=== PATIENT | female | born 1995 | race Caucasian/White ===

== ENCOUNTER 2017-05-04 15:36 | Emergency (ER) | payer SELFPAY ==
[2017-05-04 15:41] VITALS: BP 129/60; PULSE 80; RESP 20; TEMP 98.8; O2SAT 100
[2017-05-04] MEDS ORDERED: SODIUM CHLOR 0.9% 1000 ML INJ 1,000 ML IV ONE (17:15)
[2017-05-04] MEDS ORDERED: ACETAMINOPHEN 325 MG TAB PO ONE (17:15)
[2017-05-04 17:42] LABS: AUTOMATED NEUTROPHIL # 4.1 TH/MM3 (1.8-7.7); BASOPHIL % 0.2 % (0.0-2.0); EOSINOPHIL % 0.4 % (0.0-4.0); HEMATOCRIT 36.1 % (35.0-46.0); HEMOGLOBIN 11.9 GM/DL (11.6-15.3); LYMPH % 24.7 % (9.0-44.0); LYMPHOCYTE # 1.5 TH/MM3 (1.0-4.8); MEAN CORPUSCULAR HEMOGLOBIN 27.7 PG (27.0-34.0); MEAN PLATELET VOLUME 8.5 FL (7.0-11.0); MONO % 5.8 % (0.0-8.0); MONOCYTE # 0.3 TH/MM3 (0-0.9); NEUT % 68.9 % (16.0-70.0); PLATELET COUNT 273 TH/MM3 (150-450); RED BLOOD COUNT 4.29 MIL/MM3 (4.00-5.30); RED CELL DISTRIBUTION WIDTH 13.9 % (11.6-17.2); WHITE BLOOD COUNT 5.9 TH/MM3 (4.0-11.0)
[2017-05-04 17:51] LABS: CHLORIDE 107 MEQ/L (98-107); SODIUM (NA) 138 MEQ/L (136-145)
[2017-05-04 17:54] LABS: ALBUMIN 3.1 GM/DL (3.4-5.0); CALCIUM 8.6 MG/DL (8.5-10.1)
[2017-05-04 17:55] LABS: BICARBONATE 22.6 MEQ/L (21.0-32.0); BLOOD UREA NITROGEN 5 MG/DL (7-18); GLUCOSE,RANDOM 83 MG/DL (74-106)
[2017-05-04 17:58] LABS: ALT (GPT) 9 U/L (10-53); AST (GOT) 9 U/L (15-37); CREATININE 0.54 MG/DL (0.50-1.00); GLOMERULAR FILTRATION RATE 143 ML/MIN (>89)
[2017-05-04 17:59] LABS: TOTAL BILIRUBIN ADULT 0.5 MG/DL (0.2-1.0); TOTAL PROTEIN 6.9 GM/DL (6.4-8.2)
[2017-05-04 18:00] LABS: ALKALINE PHOSPHATASE 57 U/L (45-117)
[2017-05-04 18:02] LABS: BILIRUBIN, URINE NEG (NEG); BLOOD, URINE NEG (NEG); GLUCOSE,URINE NEG (NEG); KETONE, URINE TRACE mg/dL (NEG); NITRITE,URINE POS (NEG); URINE LEUKOCYTE ESTERASE NEG (NEG)
[2017-05-04 18:15] LABS: RBC, URINE 0-3 /hpf (0-3); URINE COLOR YELLOW (YELLW/STRAW); WBC, URINE 0-2 /hpf (0-5)
[2017-05-04 18:16] LABS: BACTERIA, URINE FEW /hpf; MUCUS URINE MANY /lpf (OCC); SQUAMOUS EPITHELIAL CELL URINE 0-5 /hpf (0-5)
[2017-05-04 19:10] VITALS: BP 121/66; PULSE 78; RESP 16; O2SAT 100
[2017-05-04] MEDS ORDERED: SODIUM CHLOR 0.9% 250 ML INJ 250 ML IV ONE (19:15)
[2017-05-04] MEDS ORDERED: MACR100C2 PO (19:19)
--- NOTE | 2017-05-04 19:19 | PD ---
HPI Chief Complaint: Related Problem Time Seen by Provider: 17:04 Travel History International Travel<30 days: No Contact w/Intl Traveler<30days: No Traveled to known affect area: No History of Present Illness HPI Patient is a 21-year-old female comes in complaining of abdominal cramping. She says she has missed one menstrual cycle And had a positive test at home. She has one in the past, one live child, no complications with her . She says she has been spotting a few times over the past few weeks. She denies any burning on urination. She denies fever or chills. She denies nausea or vomiting. She denies any back pain. She has not taken anything for her symptoms. Nothing seems to make her symptoms better or worse. [facility] Past Medical History Medical History: Denies Significant Hx Influenza Vaccination: No ?: LMP: 2 MONTHS Past Surgical History Section: Yes Social History Alcohol Use: No Tobacco Use: No Substance Use: No Allergies-Medications (Allergen,Severity, Reaction): Coded Allergies: No Known Allergies (Unverified , 05/04/17) Reported Meds & Prescriptions Reported Meds & Active Scripts Active Macrobid (Nitrofurantoin Monohydrate Macrocrystals) 100 Mg Capsule 100 Mg PO BID 7 Days Review of Systems Except as stated in HPI: all other systems reviewed are Neg General / Constitutional: No: Fever, Chills HENT: No: Headaches, Lightheadedness Respiratory: No: Shortness of Breath Gastrointestinal: Positive: Abdominal Pain, No: Nausea, Vomiting Genitourinary: No: Dysuria, Flank Pain Musculoskeletal: No: Myalgias, Weakness Skin: No Rash, No Change in Pigmentation Neurologic: No: Weakness, Dizziness Physical Exam Narrative GENERAL: Awake and alert, in no acute distress. SKIN: Focused skin assessment warm/dry. HEAD: Atraumatic. Normocephalic. EYES: Pupils equal and round. No scleral icterus. No injection or drainage. ENT: Mucous membranes pink and moist. NECK: Trachea midline. No JVD. CARDIOVASCULAR: Regular rate and rhythm. No murmur appreciated. RESPIRATORY: No accessory muscle use. Clear to auscultation. Breath sounds equal bilaterally. GASTROINTESTINAL: Abdomen soft, non-tender, nondistended. : exam performed in the presence of a nurse. Thin white discharge, no vaginal bleeding, os is closed. No CMT. MUSCULOSKELETAL: No obvious deformities. No clubbing. No cyanosis. No edema. NEUROLOGICAL: Awake and alert. No obvious cranial nerve deficits. Motor grossly within normal limits. Normal speech. PSYCHIATRIC: Appropriate mood and affect; insight and judgment normal. Data Data Last Documented VS Vital Signs Date Time Temp Pulse Resp B/P (MAP) Pulse Ox O2 Delivery O2 Flow Rate FiO2 05/04/17 18:51 16 05/04/17 15:41 98.8 80 129/60 (83) 100 Orders Orders Iv Access Insert/Monitor (05/04/17 17:11) Complete Blood Count With Diff (05/04/17 17:11) Comprehensive Metabolic Panel (05/04/17 17:11) Beta Hcg (Quant/Titer) (05/04/17 17:11) Type And Screen (05/04/17 17:11) Urinalysis - C+S If Indicated (05/04/17 17:11) Ed Urine Pregnancytest Poc (05/04/17 17:11) Sodium Chlor 0.9% 1000 Ml Inj (Ns 1000 M (05/04/17 17:15) Acetaminophen (Tylenol) (05/04/17 17:15) Ed Poc Ultrasound (05/04/17 ) Wet Prep Profile (05/04/17 18:41) Gc And Chlamydia Pcr (05/04/17 18:41) Mandatory Outpatient Referral (05/04/17 18:41) Rhogam Only (05/04/17 19:08) Sodium Chlor 0.9% 250 Ml Inj (Ns 250 Ml (05/04/17 19:15) Ed Discharge Order (05/04/17 19:20) Labs Laboratory Tests Test 05/04/17 17:30 05/04/17 18:45 White Blood Count 5.9 TH/MM3 Red Blood Count 4.29 MIL/MM3 Hemoglobin 11.9 GM/DL Hematocrit 36.1 % Mean Corpuscular Volume 84.0 FL Mean Corpuscular Hemoglobin 27.7 PG Mean Corpuscular Hemoglobin Concent 33.0 % Red Cell Distribution Width 13.9 % Platelet Count 273 TH/MM3 Mean Platelet Volume 8.5 FL Neutrophils (%) (Auto) 68.9 % Lymphocytes (%) (Auto) 24.7 % Monocytes (%) (Auto) 5.8 % Eosinophils (%) (Auto) 0.4 % Basophils (%) (Auto) 0.2 % Neutrophils # (Auto) 4.1 TH/MM3 Lymphocytes # (Auto) 1.5 TH/MM3 Monocytes # (Auto) 0.3 TH/MM3 Eosinophils # (Auto) 0.0 TH/MM3 Basophils # (Auto) 0.0 TH/MM3 CBC Comment DIFF FINAL Differential Comment Urine Color YELLOW Urine Turbidity CLEAR Urine pH 6.0 Urine Specific [place] 1.030 Urine Protein NEG mg/dL Urine Glucose (UA) NEG mg/dL Urine Ketones TRACE mg/dL Urine Occult Blood NEG Urine Nitrite POS Urine Bilirubin NEG Urine Leukocyte Esterase NEG Urine RBC 0-3 /hpf Urine WBC 0-2 /hpf Urine Squamous Epithelial Cells 0-5 /hpf Urine Bacteria FEW /hpf Urine Mucus MANY /lpf Microscopic Urinalysis Comment CULT NOT INDICATED Blood Urea Nitrogen 5 MG/DL Creatinine 0.54 MG/DL Random Glucose 83 MG/DL Total Protein 6.9 GM/DL Albumin 3.1 GM/DL Calcium Level 8.6 MG/DL Alkaline Phosphatase 57 U/L Aspartate Amino Transf (AST/SGOT) 9 U/L Alanine Aminotransferase (ALT/SGPT) 9 U/L Total Bilirubin 0.5 MG/DL Sodium Level 138 MEQ/L Potassium Level 3.6 MEQ/L Chloride Level 107 MEQ/L Carbon Dioxide Level 22.6 MEQ/L Anion Gap 8 MEQ/L Estimat Glomerular Filtration Rate 143 ML/MIN Human Chorionic Gonadotropin, Quant 55530 MIU/ML Clue Cells (Wet Prep) NONE SEEN Vaginal Trichomonas (Wet Prep) NONE SEEN Vaginal Yeast (Wet Prep) NONE SEEN MDM Medical Decision Making Medical Screen Exam Complete: Yes Emergency Medical Condition: Yes Differential Diagnosis UTI versus dehydration versus BV Narrative Course Patient is a 21-year-old female who comes in complaining of abdominal cramping and occasional spotting during . She believes she is 1-2 months . IV established, labs sent. Labs show no acute abnormalities. Patient is O- and blood type. She will be given RhoGAM. Urinalysis is positive for UTI. Bedside ultrasound performed shows a BB that is much further along than 2 months. I estimate the is 16-20 weeks. Baby appears to be normal, has appropriate heart rate, is moving around. Patient will be given RhoGAM. We'll be discharged with a prescription for Macrobid. She is advised follow-up with OB as soon as possible. Mandatory referral placed. Advised to return to the ED as needed for any worsening symptoms. Procedures Procedure Narrative Emergency Department Pelvic ultrasound was performed with patient consent. The curvilinear probe was used in the transverse and sagittal views within the suprapubic region revealing single intrauterine . heart rate was 140. Baby is moving around, no free fluid in the pelvis. Diagnosis Primary Impression: UTI (urinary tract infection) Qualified Codes: N30.00 - Acute cystitis without hematuria Referrals: Nicolasa Veronica MD call for appointment Patient Instructions: General Instructions, Urinary Tract Infection in (ED) Additional Instructions: Take all of your antibiotic. Drink plenty of fluids. Take vitamins. Return to the ED as needed for any worsening symptoms. Scripts Nitrofurantoin Monohydrate Macrocrystals (Macrobid) 100 Mg Capsule 100 MG PO BID for Infection for 7 Days, #14 CAP 0 Refills Prov: Luna Sanches MD 05/04/17 Disposition: 01 DISCHARGE HOME Condition: Stable Luna Sanches MD May 04, 2017 19:19
[2017-05-04 20:09] VITALS: BP 125/69; PULSE 76; RESP 16; TEMP 98.9; O2SAT 99
[2017-05-04 20:20] VITALS: BP 125/69
== END 2017-05-04 20:33 | disposition home or self-care (01) ==
LOC: PHED 15:36
DX: O23.12 Infections of bladder in pregnancy, second trimester (principal); N30.00 Acute cystitis without hematuria
CPT/HCPCS: 80053; 81001; 84702; 84703; 85025; 86850; 86900; 86901; 87210; 87491; 87591; 90384; 96360; 99285; J7030; J2790

== ENCOUNTER 2017-07-30 13:41 | Emergency (ER) | payer OTHER ==
[~2017-07-30 13:41] MED LIST: MACR100C2 PO
[2017-07-30 14:15] VITALS: BP 134/73; PULSE 98
[2017-07-30 14:24] VITALS: RESP 18; TEMP 98.2
--- NOTE | 2017-07-30 14:35 | PD ---
HPI Chief Complaint intermittent cramping Date Seen: Jul 30, 2017 Time Seen: 14:00 Travel History International Travel<30 Days: No Contact w/Intl Traveler<30Days: No Known Affected Area: No History of Present Illness HPI Ms Robles is a 22YO at estimated 29/5 weeks (based on TVUS performed in [facility] in April) with no PNC who presents with intermittent cramping pain and feet swelling. There is no vaginal bleeding or discharge. No HAs or visual disturbance. No n/v/d. Pt was seen in [facility] in May 07 with positive test, US showing infant estimated at 16-20 weeks and placed on Macrobid for UTI. Pt was referred to an OB but has had trouble establishing care. Other labs wnl at the time. Pt also has had Rhogam for O- blood type. Pt has hx of one prior induced for delivery requiring C/S as the mother had HTN at the time but mother states was delivered at term. Takes PNV and no other medications and has NKA. Pt denies CP, dizziness, dysuria, but does state she gets SOB with exertion. Weeks Gestation: 29 Para: 1 : 2 History Past Medical History Medical History: Denies Significant Hx Obstetric History Obstetric History one prior C/S that began as induction due to HTN Past Surgical History Narrative Surgical C/S x1 Family History Family History: Negative Social History Alcohol Use: No Tobacco Use: No Substance Abuse: No Allergies-Medications (Allergen,Severity, Reaction): Coded Allergies: No Known Allergies (Unverified , 05/04/17) Home Meds Active Scripts Nitrofurantoin Monohydrate Macrocrystals (Macrobid) 100 Mg Capsule, 100 MG PO BID for Infection for 7 Days, #14 CAP 0 Refills Prov:Luna Sanches MD 05/04/17 Narrative Medication Pt completed Macrobid in April Review of Systems General / Constitutional: No: Fever, Chills Eyes: No: Visual changes HENT: No: Headaches Cardiovascular: No: Chest Pain or Discomfort, Palpitations Respiratory: Short of Breath (exertional) Gastrointestinal: Abdominal Pain, No: Nausea, Vomiting, Diarrhea, Constipation Genitourinary: Frequency, Incontinence, No: Dysuria, Hematuria, Discharge, Vaginal Bleeding Musculoskeletal: Cramping, No: Weakness Skin: No Rash Neurologic: No: Weakness, Dizziness Psychiatric: No: Anxiety, Depression Physical Exam T - 98.2 / HR 98 / BP 134/73 / RR 18 Narrative GENERAL: Well-nourished, well-developed patient lying in bed in NAD. SKIN: Warm and dry. No leasions, rashes or ecchymoses. HEAD: Normocephalic and atraumatic. EYES: No scleral icterus. No injection or drainage. EOMI. ENT: No nasal drainage noted. Mucous membranes pink. Airway patent. NECK: Supple, trachea midline. No JVD. CARDIOVASCULAR: Regular rate and rhythm without murmurs, gallops, or rubs. RESPIRATORY: Breath sounds equal bilaterally. No accessory muscle use. No increased WOB. ABDOMEN/GI: Abdomen soft, non-tender, bowel sounds present, no rebound, no guarding Gravid to 29 weeks size GENITOURINARY: Cervix: [-] Dilatation: [-] Effacement: [-] Station: [-] Presentation: [-] Membranes: [intact or ruptured] Uterine Contractions: absent FHT's: Category: 1 Baseline: 135 Reactive: yes Variability: moderate Decels: absent EXTREMITIES: No cyanosis or edema. BACK: Nontender without obvious deformity. No CVA tenderness. NEUROLOGICAL: Awake and alert. Motor and sensory grossly within normal limits. Five out of 5 muscle strength in all muscle groups. Normal speech. Data Data Vital Signs Reviewed: Yes Orders Orders Vital Signs (Adult) .ON ADMISSION (07/30/17 14:12) ^ Labor Status (07/30/17 14:12) Urinalysis - C+S If Indicated (07/30/17 14:12) ^ Non Stress Test (07/30/17 14:12) Diet Liquid (07/30/17 Dinner) MDM Medical Record Reviewed: Yes Narrative Course / MDM 22YO estimated at 29/5 weeks with no PNC p/w intermittent abdominal cramping. FHT reassuring BL 135, reactive, moderate, absent decels. Physical exam benign. 1. IUP -Monitor and toco -UA negative for infection -Advised to seek PNC with [facility]W and given info on how to call for appt -Mother taking PNV -Mother advised to hydrate Pt debbie Williamson Diagnosis Diagnosis: Primary Impression: Round ligament pain Disposition: DISCHARGE HOME Condition: Stable Blanke,Claude H MD R1 Jul 30, 2017 14:35
[2017-07-30 14:38] LABS: BILIRUBIN, URINE NEG (NEG); BLOOD, URINE NEG (NEG); GLUCOSE,URINE NEG (NEG); KETONE, URINE NEG (NEG); MUCUS URINE FEW /lpf (OCC); NITRITE,URINE NEG (NEG); PH, URINE 7.5 (5.0-8.5); SQUAMOUS EPITHELIAL CELL URINE 2 /hpf (0-5); URINE COLOR YELLOW (YELLW/STRAW); URINE LEUKOCYTE ESTERASE NEG (NEG)
== END 2017-07-30 15:33 | disposition home or self-care (01) ==
LOC: HOBED 13:41
DX: O26.893 Other specified pregnancy related conditions, third trimester (principal); R10.2 Pelvic and perineal pain; Z3A.29 29 weeks gestation of pregnancy
CPT/HCPCS: 81001; 99283

== ENCOUNTER 2017-10-01 09:07 | Inpatient (IN) | payer OTHER ==
[~2017-10-01] VITALS: Ht 157.5 cm; Wt 100.0 kg
[2017-10-01] VITALS (64 sets, daily range): BP systolic 98–154; BP diastolic 40–94; PULSE 64–135; RESP 18–20; TEMP 98.1–98.5; O2SAT 97–100
[2017-10-01] MEDS ORDERED: LACTATED RINGER'S 1000 ML INJ 1,000 ML IV PRN (09:28)
[2017-10-01] MEDS ORDERED: LACTATED RINGER'S 1000 ML INJ 1,000 ML IV SCH ×2 (09:28→20:58)
[2017-10-01] MEDS ORDERED: SODIUM CHLORID 0.9% 500 ML INJ 500 ML IV PRN (09:30)
[2017-10-01] MEDS ORDERED: CITRIC ACID-SODIUM CITRATE LIQ 30 ML UDC PO SCH (09:30)
[2017-10-01] MEDS ORDERED: LIDOCAINE HCL 1% 50 ML VIAL I-DERMAL PRN (09:30)
[2017-10-01] MEDS ORDERED: OXYTOCIN 30 UNITS-500ML PREMIX 500 ML IV ONE ×2 (09:30→16:00)
[2017-10-01] MEDS ORDERED: MINERAL OIL 10 ML VIAL TOPICAL PRN (09:30)
[2017-10-01] MEDS ORDERED: LIDOCAINE HCL 1% 50 ML VIAL INFIL PRN (09:30)
--- NOTE | 2017-10-01 09:35 | PD ---
HPI Chief Complaint Contractions Date Seen: Oct 01, 2017 Time Seen: 09:15 Travel History International Travel<30 Days: No Contact w/Intl Traveler<30Days: No Known Affected Area: No History of Present Illness HPI 22-year-old at 38/5 presenting to the OB ED with contractions. Patient states she had no care because she "did not know she was until 6 months gestation". Ultrasound at that time has been used for gestational age. Patient states she has been having painful contractions since 3 AM. No vaginal bleeding, gush of fluid, decreased movement. History Past Medical History Medical History: Denies Significant Hx Obstetric History Obstetric History Previous delivery was a stat at term as patient had nonreassuring FHT during labor/ PIH. She states this CS occurred roughly 15 months ago. Delivery was at [facility] -requesting records Past Surgical History Narrative Surgical 1 Family History Family History: Negative Social History Alcohol Use: No Tobacco Use: No Substance Abuse: No Allergies-Medications (Allergen,Severity, Reaction): Coded Allergies: No Known Allergies (Unverified , 05/04/17) Home Meds Active Scripts Nitrofurantoin Monohydrate Macrocrystals (Macrobid) 100 Mg Capsule, 100 MG PO BID for Infection for 7 Days, #14 CAP 0 Refills Prov:Luna Sanches MD 05/04/17 Review of Systems Except as stated in HPI: all other systems reviewed are Neg Physical Exam Narrative GENERAL: Well-nourished, well-developed patient. SKIN: Warm and dry. HEAD: Normocephalic and atraumatic. EYES: No scleral icterus. No injection or drainage. ENT: No nasal drainage noted. Mucous membranes pink. Airway patent. NECK: Supple, trachea midline. No JVD. CARDIOVASCULAR: Regular rate and rhythm without murmurs, gallops, or rubs. RESPIRATORY: Breath sounds equal bilaterally. No accessory muscle use. ABDOMEN/GI: Abdomen soft, non-tender, bowel sounds present, no rebound, no guarding GENITOURINARY: External Genitalia: intact and normal in appearance Cervix: Mid position Dilatation: 8 Effacement: 90 Station: 0 Presentation: Vertex Membranes: Bulging bag intact Uterine Contractions: every 2-3 minutes on the monitor FHT's: Category: 1 Baseline: 130 Reactive: yes Variability: moderate Decels: none EXTREMITIES: No cyanosis or edema. BACK: Nontender without obvious deformity. No CVA tenderness. NEUROLOGICAL: Awake and alert. Motor and sensory grossly within normal limits. Five out of 5 muscle strength in all muscle groups. Normal speech. Data Data Orders Orders Ob (2e) Additional Admit Info (10/01/17:) Admit To Inpatient (10/01/17 ) Code Status (10/01/17:) Vital Signs (Adult) .Per protocol (10/01/17:) Activity Oob Ad Deepthi (10/01/17:) Heart (10/01/17:) Amnioinfusion (10/01/17:) Urinary Catheter Management .ONCE (10/01/17:) Diet Npo (10/01/17 Breakfast) Lactated Ringer's 1000 Ml Inj (Lr 1000 M (10/01/17 09:28) Lactated Ringer's 1000 Ml Inj (Lr 1000 M (10/01/17 09:28) Sodium Chlorid 0.9% 500 Ml Inj (Ns 500 M (10/01/17 09:30) Sodium Chlor 0.9% 1000 Ml Inj (Ns 1000 M (10/01/17 09:48) Lidocaine 1% Inj (50 Ml) (Xylocaine 1% I (10/01/17 09:30) Citric Acid-Sodium Citrate Liq (Bicitra (10/01/17 09:30) Fentanyl Inj (Fentanyl Inj) (10/01/17 09:30) Fentanyl Inj (Fentanyl Inj) (10/01/17 09:30) Complete Blood Count With Diff (10/01/17:) Hold Clot (10/01/17:28) Abo/Rh Blood Type (10/01/17:) Urinalysis - C+S If Indicated (10/01/17:) Drug Screen, Random Urine (10/01/17:) Ob/Psych Drug Screen, Urine (10/01/17:) Type And Screen (10/01/17:) Rapid Plasma Regin (Rpr) W Ttr (10/01/17:) Hepatitis Profile (10/01/17:28) No Care Spec Serology (10/01/17 09:28) Resp Oxygen Non Rebreathe Mask (10/01/17 ) ^ Epidural / Intrathecal Infus (10/01/17 09:28) Oxytocin 30 Units-500ml Premix (Pitocin (10/01/17 09:30) Lidocaine 1% Inj (50 Ml) (Xylocaine 1% I (10/01/17 09:30) Light Mineral Oil (Muri-Lube Oil) (10/01/17 09:30) Inpatient Certification (10/01/17 ) Specimen To Be Collected PRN (10/01/17 09:28) Specimen To Be Collected PRN (10/01/17 09:28) MDM Plan 22-year-old at 38/5 with no care to the OB ED with contractions. Found to be 8/90/0. Initially admitted for -Ordering labs -Requesting US, prior delivery records -Epidural in place -Obtaining US to assess for placental placement, evaluation for possible accreta. -Low threshold to section. Diagnosis Diagnosis: Primary Impression: Active labor Additional Impressions: No care in current Previous section Stephen Blankenship MD R1 Oct 01, 2017 09:35
[2017-10-01] MEDS ORDERED: SODIUM CHLOR 0.9% 1000 ML INJ 1,000 ML IV PRN (09:48)
[2017-10-01] MEDS ORDERED: ePHEDrine/NS 25 MG/5 ML SYRINGE ONE (10:00)
[2017-10-01] MEDS ORDERED: fentaNYL 2MCG-BUPIV 0.125% INJ 150 ML EPIDURAL ONE (10:00)
[2017-10-01 10:12] LABS: AUTOMATED NEUTROPHIL # 8.8 TH/MM3 (1.8-7.7); BASOPHIL % 0.2 % (0.0-2.0); HEMATOCRIT 33.3 % (35.0-46.0); HEMOGLOBIN 11.1 GM/DL (11.6-15.3); LYMPH % 12.9 % (9.0-44.0); LYMPHOCYTE # 1.4 TH/MM3 (1.0-4.8); MEAN CELL VOLUME 82.8 FL (80.0-100.0); MEAN CORPUSCULAR HEMOGLOBIN 27.6 PG (27.0-34.0); MEAN CORPUSCULAR HGB CONC 33.3 % (32.0-36.0); MEAN PLATELET VOLUME 7.9 FL (7.0-11.0); MONO % 5.9 % (0.0-8.0); MONOCYTE # 0.6 TH/MM3 (0-0.9); PLATELET COUNT 268 TH/MM3 (150-450); RED BLOOD COUNT 4.02 MIL/MM3 (4.00-5.30); RED CELL DISTRIBUTION WIDTH 15.9 % (11.6-17.2); WHITE BLOOD COUNT 10.9 TH/MM3 (4.0-11.0)
[2017-10-01 10:37] LABS: ALBUMIN 2.8 GM/DL (3.4-5.0); ALT (GPT) 18 U/L (10-53); AST (GOT) 13 U/L (15-37); BICARBONATE 19.9 MEQ/L (21.0-32.0); BLOOD UREA NITROGEN 7 MG/DL (7-18); CALCIUM 8.4 MG/DL (8.5-10.1); CHLORIDE 109 MEQ/L (98-107); CREATININE 0.61 MG/DL (0.50-1.00); GLOMERULAR FILTRATION RATE 123 ML/MIN (>89); GLUCOSE,RANDOM 95 MG/DL (74-106); SODIUM (NA) 140 MEQ/L (136-145)
[2017-10-01 10:39] LABS: ALKALINE PHOSPHATASE 177 U/L (45-117); TOTAL BILIRUBIN ADULT 0.6 MG/DL (0.2-1.0); TOTAL PROTEIN 6.9 GM/DL (6.4-8.2)
[2017-10-01] MEDS ORDERED: NO SYSTEM NARCOTICS PRN (11:00)
[2017-10-01] MEDS ORDERED: ePHEDrine/NS 25 MG/5 ML SYRINGE IV PUSH PRN (11:00)
[2017-10-01] MEDS ORDERED: DO NOT ADMINISTER ANTICOAGULANTS PRN (11:00)
[2017-10-01] MEDS ORDERED: fentaNYL 2MCG-BUPIV 0.125% 150 ML EPIDURAL PRN (11:00)
--- NOTE | 2017-10-01 11:32 | HHI.HP ---
History & Physical H&P HPI 22-year-old at 38/5 presenting to the OB ED with contractions. Patient states she had no care because she "did not know she was until 6 months gestation". Ultrasound at that time has been used for gestational age. Patient states she has been having painful contractions since 3 AM. No vaginal bleeding, gush of fluid, or decreased movement. History (Limited) History Past Medical History Medical History: Denies Significant Hx Obstetric History Obstetric History Previous delivery was a stat at term as patient had nonreassuring FHT during labor/ PIH. She states this CS occurred roughly 15 months ago. Delivery was at [facility] -requesting records Past Surgical History Narrative Surgical 1 Family History Family History: Negative Social History Alcohol Use: No Tobacco Use: No Substance Abuse: No Allergies-Medications Allergies-Medications (Allergen,Severity, Reaction): Coded Allergies: No Known Allergies (Unverified , 05/04/17) Home Meds Active Scripts Nitrofurantoin Monohydrate Macrocrystals (Macrobid) 100 Mg Capsule, 100 MG PO BID for Infection for 7 Days, #14 CAP 0 Refills Prov:Luna Sanches MD 05/04/17 ROS Review of Systems Except as stated in HPI: all other systems reviewed are Neg Physical Exam Physical Exam Narrative GENERAL: Well-nourished, well-developed patient. SKIN: Warm and dry. HEAD: Normocephalic and atraumatic. EYES: No scleral icterus. No injection or drainage. ENT: No nasal drainage noted. Mucous membranes pink. Airway patent. NECK: Supple, trachea midline. No JVD. CARDIOVASCULAR: Regular rate and rhythm without murmurs, gallops, or rubs. RESPIRATORY: Breath sounds equal bilaterally. No accessory muscle use. ABDOMEN/GI: Abdomen soft, non-tender, bowel sounds present, no rebound, no guarding GENITOURINARY: External Genitalia: intact and normal in appearance Cervix: Mid position Dilatation: 8 Effacement: 90 Station: 0 Presentation: Vertex Membranes: Bulging bag intact Uterine Contractions: every 2-3 minutes on the monitor FHT's: Category: 1 Baseline: 130 Reactive: yes Variability: moderate Decels: none EXTREMITIES: No cyanosis or edema. BACK: Nontender without obvious deformity. No CVA tenderness. NEUROLOGICAL: Awake and alert. Motor and sensory grossly within normal limits. Five out of 5 muscle strength in all muscle groups. Normal speech. Data Data Data Orders Orders Ob (2e) Additional Admit Info (10/01/17:) Admit To Inpatient (10/01/17 ) Code Status (10/01/17:28) Vital Signs (Adult) .Per protocol (10/01/17:) Activity Oob Ad Deepthi (10/01/17:) Heart (10/01/17:) Amnioinfusion (10/01/17:) Urinary Catheter Management .ONCE (10/01/17:) Diet Npo (10/01/17 Breakfast) Lactated Ringer's 1000 Ml Inj (Lr 1000 M (10/01/17 09:28) Lactated Ringer's 1000 Ml Inj (Lr 1000 M (10/01/17 09:28) Sodium Chlorid 0.9% 500 Ml Inj (Ns 500 M (10/01/17 09:30) Sodium Chlor 0.9% 1000 Ml Inj (Ns 1000 M (10/01/17 09:48) Lidocaine 1% Inj (50 Ml) (Xylocaine 1% I (10/01/17 09:30) Citric Acid-Sodium Citrate Liq (Bicitra (10/01/17 09:30) Fentanyl Inj (Fentanyl Inj) (10/01/17 09:30) Fentanyl Inj (Fentanyl Inj) (10/01/17 09:30) Complete Blood Count With Diff (10/01/17:) Hold Clot (10/01/17:) Abo/Rh Blood Type (10/01/17:) Urinalysis - C+S If Indicated (10/01/17:) Drug Screen, Random Urine (10/01/17:) Ob/Psych Drug Screen, Urine (10/01/17:) Type And Screen (10/01/17:) Rapid Plasma Regin (Rpr) W Ttr (10/01/17:28) Hepatitis Profile (10/01/17:) No Care Spec Serology (10/01/17:) Resp Oxygen Non Rebreathe Mask (10/01/17 ) ^ Epidural / Intrathecal Infus (10/01/17 09:28) Oxytocin 30 Units-500ml Premix (Pitocin (10/01/17 09:30) Lidocaine 1% Inj (50 Ml) (Xylocaine 1% I (10/01/17 09:30) Light Mineral Oil (Muri-Lube Oil) (10/01/17 09:30) Inpatient Certification (10/01/17 ) Specimen To Be Collected PRN (10/01/17:28) Specimen To Be Collected PRN (10/01/17 09:28) MDM MDM Plan 22-year-old at 38/5 with no care to the OB ED with contractions. Found to be 8/90/0. Initially admitted for -Ordering labs -Requesting US, prior delivery records -Epidural in place -Obtaining US to assess for placental placement, evaluation for possible accreta. -Low threshold to section. Stephen Blankenship MD R1 Oct 01, 2017 11:32
--- NOTE | 2017-10-01 11:35 | HHI.PR ---
[employer] OFFICER Note Note I assumed care of the pt at 10:00am. Briefly, she is a at approximately 38wks by 6m US who presented in active labor. She has had no PNC. She states that she had a CS her first b/c her BP went up and the FHR dropped. She states that she was told she would need a in the future after having one. She reports that she was term with that delivery and it was at [facility] in [place]. This was 15m ago. Records were attempted to be obtained, however the hospital stated that they have no records of a pt with that name. Pt denies ever having used a different name. Pt states she has had no PNC this b/c she found out when she was already 6m and no clinic would accept her because she was "high risk". She states that she had a single US at 6m which was done at a hospital in [facility]. [facility] was contacted but they deny that she had been seen. Pt was unable to offer additional information. She was advised that there is an increased risk of complications with in short interval pregnancies and especially given no PNC, we have limited data on her safety profile. It can be presumed that she had a LTCS since she was term with last delivery. BSUS ordered for sono tech to evaluate placentation (fundal). Pt was counseled that since she is 9cm and has cat 1 FHTs, I would be open to allowing a TOLAC, however if there were any concerns for rupture or NRFHTs, she would immediately need a rCS. Discussed option of rCS now, however pt states that she would like to try for a vaginal delivery. Will proceed cautiously and monitor closely. Low threshold for rCS if labor dystocia, NRFHTs, concerns for rupture, or any other standard indications. Sylvia Williamson MD Oct 01, 2017 11:35
[2017-10-01 11:58] LABS: BILIRUBIN, URINE NEG (NEG); BLOOD, URINE NEG (NEG); CALCIUM OXALATE CRYSTALS,URINE OCC /hpf; GLUCOSE,URINE NEG (NEG); HYALINE CAST, URINE 2 /lpf (RARE); KETONE, URINE 10 mg/dL (NEG); MUCUS URINE MANY /lpf (OCC); NITRITE,URINE NEG (NEG); SQUAMOUS EPITHELIAL CELL URINE 3 /hpf (0-5); URINE COLOR YELLOW (YELLW/STRAW); URINE LEUKOCYTE ESTERASE TRACE (NEG)
[2017-10-01] MEDS ORDERED: LIDOCAINE 2%/EPINEPHrine PF 1:200,000 20ML SDV OTHER ONE (12:00)
[2017-10-01] MEDS ORDERED: ONDANSETRON HCL 4 MG/2 ML VIAL IV ONE (12:00)
[2017-10-01] MEDS ORDERED: KETOROLAC TROMETHAMINE 30 MG/ML (IVP) VIAL IV PUSH ONE (12:00)
[2017-10-01] MEDS ORDERED: LACTATED RINGER'S 1000 ML INJ 1,000 ML IV ONE (12:00)
[2017-10-01] MEDS ORDERED: OXYTOCIN 10 UNIT/ML AMP IV ONE (12:00)
[2017-10-01] MEDS ORDERED: PHENYLEPH/NS 1000 MCG/10 ML SYR IV ONE (12:00)
[2017-10-01] MEDS ORDERED: ePHEDrine/NS 25 MG/5 ML SYRINGE IV ONE (12:00)
[2017-10-01] MEDS ORDERED: ceFAZolin INJ 1,000 MG VIAL IV ONE (12:00)
[2017-10-01] MEDS ORDERED: MORPHINE SULFATE PF 5 MG/10 ML VIAL ONE (15:23)
[2017-10-01] MEDS ORDERED: ACETAMINOPHEN 1000 MG/100 ML 100 ML IV ONE (15:31)
[2017-10-01] MEDS ORDERED: ONDANSETRON ODT 4 MG TAB PO PRN (16:00)
[2017-10-01] MEDS ORDERED: ACETAMINOPHEN 325 MG TAB PO PRN (16:00)
[2017-10-01] MEDS ORDERED: oxyCODONE/ACETAMINOPHEN 5 MG/325 MG TAB PO PRN (16:00)
[2017-10-01] MEDS ORDERED: SIMETHICONE 80 MG CHEWABLE TAB PO PRN (16:00)
[2017-10-01] MEDS ORDERED: SODIUM CHLORIDE 0.9% FLUSH 10 ML FLUSH IV FLUSH PRN (16:00)
[2017-10-01] MEDS ORDERED: ZOLPIDEM TARTRATE 5 MG TAB PO PRN (16:00)
--- NOTE | 2017-10-01 16:06 | PD.OP ---
Operative Report Date of Surgery: Oct 01, 2017 Preoperative Diagnosis: 1. IUP @ 38.5 2. no PNC 3. h/o CSx1 4. short interval 5. terminal bradycardia remote from delivery Postoperative Diagnosis: same Procedure: emergent rCS Anesthesia: epidural Surgeon: Sylvia Williamson Barrel Drum Cutter(s): tech Resident Surgeon: MD Krzysztof, PGY-1 Operation and Findings: Antibiotics: 2g ancef given simultaneously with incision (2 additional doses of ancef postoperatively scheduled) DVT prophylaxis: SCDs were in place and active throughout the entire procedure EBL: 500cc IVF: 1200cc UOP: 200cc Drain(s): Flores to straight drain, clear Specimen(s): cord blood, cord gas, placenta Findings: vtx female delivered at 15:09 wt 3025g APGARs 8/9 Complications: none Disposition: to PACU in stable condition Indication: Pt is a who presented in labor. Had a h/o CSx1 15m ago. Was found to be 8cm and admitted for labor. At 14:55 I was notified by RN of terminal bradycardia. Pt and previously been counseled on low threshold for rCS given unknown uterine scar location and short interval. Emergent C/S was called. Technique: The pt was taken to the operating room where epidural anesthesia was found to be adequate. She was splashed with betadyne x2. A Pfannenstiel skin incision was then made with the scalpel and carried through to the underlying layer of fascia. The fascia was incised in the midline and the incision extended bluntly. The rectus muscles were then in the midline , and the peritoneum identified and entered bluntly. The peritoneal incision was stretched with good visualization of the bladder. A bladder flap was made manually and the bladder blade was inserted. Next, the lower uterine segment was incised in a transverse fashion with the scalpel. The uterine incision was stretched superiorly and inferiorly. The bladder blade was removed and the 's head delivered atraumatically followed by the body. Delayed cord clamping ensued for 45sec while the was dried, suctioned, and stimulated. The cord was double clamped and cut and handed off to the waiting team. The placenta expelled with manual fundal massage. The uterus was exteriorized and cleared of all clots and debris. The uterine incision was repaired with 0- vicryl in a running, locked fashion. An [place] stitch was placed around the R uterine artery due to extension. A second layer using 0-monocryl suture was used to obtain excellent hemostasis via embrication. The posterior cul-de-sac was suctioned and the uterus was returned to the abdomen. The gutters were cleared of all clots and debris.The underneath fascia was inspected and found to be hemostatic. The fascia was closed with 0-vicryl in a running fashion. The subcutaneous tissue was irrigated with saline and made hemostatic with the Bovie. The subcutaneous layer was reapproximated with plain gut with simple interrupted stitches. The skin was closed with 4-0 monocryl. Steristrips were placed and the incision dressed appropriately. The patient tolerated the procedure well. She was taken to the recovery room in stable condition. Sponge, lap, instrument, and needle counts were correct x3. Sylvia Williamson MD Oct 01, 2017 16:06
[2017-10-01] MEDS ORDERED: OXYTOCIN 30 UNITS-500ML PREMIX 500 ML ONE (17:33)
[2017-10-01] MEDS ORDERED: diphenhydrAMINE HCL 50 MG/ML VIAL ONE (18:41)
[2017-10-01] MEDS ORDERED: EPIDURAL-NO SYSTEMIC NARCOTICS PRN (19:30)
[2017-10-01] MEDS ORDERED: EPIDURAL-NALOXONE HCL 0.4 MG/ML AMP IV PUSH PRN (19:30)
[2017-10-01] MEDS ORDERED: EPIDURAL-DIPHENHYDRAMINE HCL 50 MG CAP PO PRN (19:30)
[2017-10-01] MEDS ORDERED: EPIDURAL-DIPHENHYDRAMINE HCL 50 MG/ML VIAL IV PUSH PRN (19:30)
[2017-10-01] MEDS ORDERED: EPIDURAL-DO NOT ADMINISTER ANTICOAGULANTS PRN (19:30)
[2017-10-01] MEDS ORDERED: SODIUM CHLORIDE 0.9% FLUSH 10 ML FLUSH IV FLUSH SCH (21:00)
[2017-10-01] MEDS ORDERED: OXYTOCIN 30 UNITS-500ML PREMIX 500 ML IV PRN (21:00)
[2017-10-02] VITALS: BP 108/69; PULSE 61; RESP 18; TEMP 98.5; O2SAT 97
[2017-10-02 00:30] VITALS: RESP 16
[2017-10-02 04:00] VITALS: BP 129/52; PULSE 91; RESP 18; TEMP 98.6; O2SAT 97
[2017-10-02 05:52] LABS: AUTOMATED NEUTROPHIL # 6.1 TH/MM3 (1.8-7.7); BASOPHIL % 0.1 % (0.0-2.0); EOSINOPHIL % 0.1 % (0.0-4.0); HEMOGLOBIN 8.8 GM/DL (11.6-15.3); LYMPH % 16.2 % (9.0-44.0); LYMPHOCYTE # 1.3 TH/MM3 (1.0-4.8); MEAN CELL VOLUME 83.5 FL (80.0-100.0); MEAN CORPUSCULAR HEMOGLOBIN 28.3 PG (27.0-34.0); MEAN CORPUSCULAR HGB CONC 33.8 % (32.0-36.0); MEAN PLATELET VOLUME 8.2 FL (7.0-11.0); MONO % 8.2 % (0.0-8.0); MONOCYTE # 0.7 TH/MM3 (0-0.9); NEUT % 75.4 % (16.0-70.0); PLATELET COUNT 211 TH/MM3 (150-450); RED BLOOD COUNT 3.11 MIL/MM3 (4.00-5.30); RED CELL DISTRIBUTION WIDTH 15.8 % (11.6-17.2); WHITE BLOOD COUNT 8.1 TH/MM3 (4.0-11.0)
[2017-10-02 08:00] VITALS: BP 107/56; PULSE 92; RESP 20; TEMP 98.5; O2SAT 98
[2017-10-02] MEDS: IBUPROFEN 600 MG TAB PO PRN ×2 (08:25→21:20)
[2017-10-02] MEDS: oxyCODONE/ACETAMINOPHEN 5 MG/325 MG TAB PO PRN ×4 (08:26→21:20)
--- NOTE | 2017-10-02 08:31 | HHI.OB ---
Subjective Remarks Patient is a 22-year-old delivered at 38 weeks and 5 days. Patient is day 1 after emergent . Patient's pain is well-controlled. Patient reports eating and drinking without any nausea or vomiting. Patient reports minimal bleeding. Patient states she has not urinated postoperatively ( dsouza removed at 0530 this AM). Patient has passed gas but no bowel movements. Patient is walking without lower extremity pain or shortness of breath. Patient is undecided about contraception and plans on formula feeding. Objective Vitals/I&O Vital Signs Date Time Temp Pulse Resp B/P (MAP) Pulse Ox O2 Delivery O2 Flow Rate FiO2 10/02/17 04:00 98.6 10/02/17 04:00 91 18 129/52 (77) 97 10/02/17 00:30 16 10/02/17 00:00 98.5 61 18 108/69 (82) 97 10/01/17 22:00 18 10/01/17 20:40 18 10/01/17 20:00 98.1 64 18 104/61 (75) 97 10/01/17 17:30 18 99 10/01/17 17:15 106/56 (73) 10/01/17 17:15 71 18 100 10/01/17 17:00 73 18 104/57 (73) 10/01/17 17:00 99 10/01/17 16:45 84 18 100/55 (70) 100 10/01/17 16:28 98 10/01/17 16:28 76 18 102/51 (68) 10/01/17 16:11 98.5 87 18 98/51 (67) 100 10/01/17 14:30 98.5 18 10/01/17 14:15 18 10/01/17 14:10 104 10/01/17 14:05 106 10/01/17 14:00 92 10/01/17 14:00 96 118/73 (88) 10/01/17 13:45 18 10/01/17 13:40 101 10/01/17 13:35 95 10/01/17 13:31 94 115/60 (78) 10/01/17 13:30 120 10/01/17 13:05 83 10/01/17 13:01 84 113/50 (71) 10/01/17 13:00 135 6/14/18 13:00 18 61418 12:55 84 614/18 12:50 87 614/18 12:46 83 109/57 (74) 18 12:40 81 6/14/18 12:40 86 6/14/18 12:35 79 6/14/18 12:35 79 6/14/18 12:31 84 105/40 (61) 18 12:30 79 614/18 12:30 85 614/18 12:30 98.1 18 10/01/18 12:25 92 614/18 12:25 88 14/18 12:20 81 614/18 12:20 83 10/01/18 12:16 80 108/55 (72) 18 12:15 78 614/18 12:15 76 10/01/18 12:10 79 618 12:10 79 18 12:05 81 18 12:05 82 18 12:02 78 112/53 (72) 18 12:00 102 18 12:00 78 18 11:53 18 18 11:46 86 108/44 (65) 18 11:45 88 18 11:45 90 14/18 11:30 18 10/01/18 11:25 92 10/01/18 11:25 92 18 11:20 115 18 11:20 115 18 11:15 97 1418 11:15 96 18 105/52 (69) 18 11:15 93 14/18 11:10 91 14/18 11:10 98 10/01/18 11:05 95 18 11:05 96 18 11:00 102 61418 11:00 18 614/18 11:00 103 98/55 (69) 18 11:00 119 6/14/18 10:55 90 614/18 10:55 93 614/18 10:50 101 14/18 10:50 103 6/14/18 10:46 119 107/51 (69) 10/01/17 10:45 94 10/01/17 10:45 93 10/01/17 10:40 110 10/01/17 10:40 100 10/01/17 10:36 18 10/01/17 10:36 94 129/74 (92) 10/01/17 10:35 104 10/01/17 10:35 103 10/01/17 10:31 98 154/93 (113) 10/01/17 10:30 87 18 10/01/17 10:30 91 10/01/17 10:25 91 10/01/17 10:25 88 10/01/17 10:25 101 145/89 (107) 10/01/17 10:22 99 134/94 (107) 10/01/17 10:20 112 10/01/17 10:20 113 10/01/17 10:16 79 136/80 (98) 10/01/17 10:15 78 10/01/17 10:15 79 10/01/17 10:10 98.1 75 139/81 (100) 10/01/17 10:10 77 10/01/17 10:10 72 10/01/17 10:05 83 10/01/17 10:05 85 10/01/17 10:00 85 10/01/17 10:00 20 10/01/17 10:00 81 Intake & Output 10/02/17 10/02/17 07:00 19:00 Intake Total 100 ml Balance 100 ml Intake IV Total 100 ml Objective Remarks GENERAL: Well-nourished, well-developed patient. CARDIOVASCULAR: Regular rate and rhythm without murmurs, gallops, or rubs. RESPIRATORY: Breath sounds equal bilaterally. No accessory muscle use. ABDOMEN/GI: Abdomen soft, non-tender. incision bandage is clean dry and intact. Fundus: Firm, non-tender at umbilicus. GENITOURINARY: Light to moderate bleeding. EXTREMITIES: No cyanosis or edema, non-tender, without signs of DVT. Medications and IVs Current Medications Medications (Trade) Dose Ordered Sig/Eliud Route Start Time Stop Time Status Last Admin ([facility] Nursing Information) No systemic narcotics to be given except... UNSCH PRN .XX 10/01/17 11:00 10/02/17 10:59 ([facility] Nursing Information) DO NOT ADMINISTER ANY ANTICOAGUL... UNSCH PRN .XX 10/01/17 11:00 10/02/17 10:59 (ePHEDrine/NS 25 MG/5 ML SYR) 10 mg UNSCH PRN IV PUSH 10/01/17 11:00 10/02/17 10:59 Lactated Ringer's 1,000 ml @ 100 mls/hr Q10H IV 10/01/17 20:58 10/02/17 16:57 Oxytocin 500 ml @ 100 mls/hr UNSCH X1 PRN IV 10/01/17 21:00 10/02/17 20:59 (NS Flush) 2 ml BID IV FLUSH 10/01/17 21:00 (NS Flush) 2 ml UNSCH PRN IV FLUSH 10/01/17 16:00 (Mylicon Chew) 80 mg QID PRN PO 10/01/17 16:00 (Tylenol) 650 mg Q6H PRN PO 10/01/17 16:00 (Motrin) 600 mg Q6H PRN PO 10/01/17 16:00 10/02/17 08:25 (Percocet 5-325 Mg) 1 tab Q4H PRN PO 10/01/17 16:00 (Percocet 5-325 Mg) 2 tab Q4H PRN PO 10/01/17 16:00 10/02/17 08:26 (Divina-Colace) 2 tab Q12H PRN PO 10/01/17 16:00 (Ambien) 5 mg HS PRN PO 10/01/17 16:00 (M-M-R Ii Inj) 0.5 ml ONCE ONCE SQ 10/02/17 16:00 10/02/17 16:01 (Boostrix Inj) 0.5 ml ONCE ONCE IM 10/02/17 16:00 10/02/17 16:01 (Zofran Odt) 4 mg Q6H PRN PO 10/01/17 16:00 ([facility] Nursing Information) NO SYSTEMIC NARCOTICS TO BE GIVEN FO... UNSCH PRN .XX 10/01/17 19:30 10/02/17 19:29 (Narcan Inj) 0.4 mg UNSCH PRN IV PUSH 10/01/17 19:30 10/02/17 19:29 (Benadryl Inj) 25 mg Q6H PRN IV PUSH 10/01/17 19:30 10/02/17 19:29 (Benadryl) 50 mg Q6H PRN PO 10/01/17 19:30 10/02/17 19:29 ([facility] Nursing Information) ALL NURSING DEPARTMENTS UNSCH PRN .XX 10/01/17 19:30 10/02/17 19:29 Cefazolin Sodium 1000 mg/Sodium Chloride 100 ml @ 200 mls/hr Q8H IV 10/02/17 08:30 10/02/17 08:59 Assessment/Plan Assessment and Plan Patient is a 22-year-old delivered at 38 weeks and 5 days. Patient is day 1 after emergent . Patient was counseled to do 6 weeks of pelvic rest. Patient was counseled to follow up in 1 and 6 weeks. Patient requested follow-up and contraception. --AF VSS --Continue routine care --Motrin and Percocet when necessary for pain --Encourage OOB --Pelvic rest for 6 weeks will need follow-up appointment at that time. Will also need follow-up in 1 week for incision check --Contraception: Undecided --Anticipate discharge in 1-2 days Stephen Blankenship MD R1 Oct 02, 2017 08:31
[2017-10-02] MEDS ORDERED: MEASLES, MUMPS, RUBELLA VACCINE 0.5 ML VIAL SQ ONE (16:00)
[2017-10-02] MEDS ORDERED: DIPHTH/TETANUS/ACEL PERTUSSIS (BOOSTER) 0.5 ML VIAL/PFS IM ONE (16:00)
[2017-10-02 20:47] VITALS: BP 119/60; PULSE 90; RESP 19; TEMP 98.3
[2017-10-02] MEDS: DOCUSATE SODIUM 50 MG/SENNA 8.6 MG TAB PO PRN (21:19)
[2017-10-03] MEDS: oxyCODONE/ACETAMINOPHEN 5 MG/325 MG TAB PO PRN ×3 (04:19→18:39)
[2017-10-03] MEDS: IBUPROFEN 600 MG TAB PO PRN ×3 (04:19→18:39)
--- NOTE | 2017-10-03 07:19 | HHI.OB ---
Subjective Post Operative Day: 2 Remarks Postoperative day number 2. AFVSS overnight. Pain well-controlled. Incision not draining. Decreased lochia. Denies dysuria. No breast tenderness. She is feeding the baby via bottle. Appetite good. No nausea or vomiting. + flatus. no bowel movement. Ambulating well. Denies calf pain, shortness of breath, or cough. Otherwise, she is doing well this morning and has no other complaints. Objective Vitals/I&O Vital Signs Date Time Temp Pulse Resp B/P (MAP) Pulse Ox O2 Delivery O2 Flow Rate FiO2 10/02/17 20:47 98.3 90 19 119/60 (79) 10/02/17 08:00 98.5 92 20 107/56 (73) 98 Result Diagram: 10/02/17 0520 10/01/17 0940 Objective Remarks GENERAL: Well-nourished, well-developed patient. CARDIOVASCULAR: Regular rate and rhythm without murmurs, gallops, or rubs. RESPIRATORY: Breath sounds equal bilaterally. No accessory muscle use. ABDOMEN/GI: Abdomen soft, non-tender, bowel sounds present. Incision: Clean, dry and intact. Fundus: Firm, non-tender at umbilicus. GENITOURINARY: Light to moderate bleeding. EXTREMITIES: No cyanosis or edema, non-tender, without signs of DVT. Medications and IVs Current Medications Medications (Trade) Dose Ordered Sig/Eliud Route Start Time Stop Time Status Last Admin (NS Flush) 2 ml BID IV FLUSH 10/01/17 21:00 (NS Flush) 2 ml UNSCH PRN IV FLUSH 10/01/17 16:00 (Mylicon Chew) 80 mg QID PRN PO 10/01/17 16:00 (Tylenol) 650 mg Q6H PRN PO 10/01/17 16:00 (Motrin) 600 mg Q6H PRN PO 10/01/17 16:00 10/03/17 04:19 (Percocet 5-325 Mg) 1 tab Q4H PRN PO 10/01/17 16:00 (Percocet 5-325 Mg) 2 tab Q4H PRN PO 10/01/17 16:00 10/03/17 04:19 (Divina-Colace) 2 tab Q12H PRN PO 10/01/17 16:00 10/02/17 21:19 (Ambien) 5 mg HS PRN PO 10/01/17 16:00 (Zofran Odt) 4 mg Q6H PRN PO 10/01/17 16:00 Assessment/Plan Assessment and Plan Patient is a 22-year-old delivered at 38 weeks and 5 days. Patient is day 2 after emergent . Patient was counseled to do 6 weeks of pelvic rest. Patient was counseled to follow up in 1 and 6 weeks. Patient requested follow-up and contraception. --AF VSS --Continue routine care --Motrin and Percocet when necessary for pain --Encourage OOB --Pelvic rest for 6 weeks will need follow-up appointment at that time. Will also need follow-up in 1 week for incision check --Contraception: Undecided --Anticipate discharge today or tomorrow Eliana Mae MD R1 Oct 03, 2017 07:19
[2017-10-03 07:40] VITALS: BP 111/54; PULSE 83; RESP 18; TEMP 98.2; O2SAT 98
[2017-10-03] MEDS: DOCUSATE SODIUM 50 MG/SENNA 8.6 MG TAB PO PRN (11:09)
[2017-10-04] MEDS: DOCUSATE SODIUM 50 MG/SENNA 8.6 MG TAB PO PRN (00:37)
[2017-10-04] MEDS: IBUPROFEN 600 MG TAB PO PRN ×2 (00:37→09:46)
[2017-10-04] MEDS: oxyCODONE/ACETAMINOPHEN 5 MG/325 MG TAB PO PRN ×2 (00:38→09:47)
[2017-10-04 08:15] VITALS: BP 121/77; PULSE 89; RESP 20; TEMP 99; O2SAT 98
--- NOTE | 2017-10-04 08:23 | HHI.DCPOC ---
Discharge Care Plan Diagnosis: (1) care following delivery Report Symptoms to Your Doctor -Temperature above 100.5 degrees -Redness, of incision or excessive or foul smelling drainage -Unusual pain or calf pain -Increased vaginal bleeding -Painful or difficulty urinating -Feelings of extreme sadness or anxiety after 2 weeks Goals to Promote Your Health * To prevent worsening of your condition and complications * To maintain your health at the optimal level Directions to Meet Your Goals Take your medications as prescribed Follow your dietary instruction Follow activity as directed Ensure plenty of rest for recovery Drink fluids for hydration Keep your appointments as scheduled Take your immunizations and boosters as scheduled If your symptoms worsen call your PCP, if no PCP go to Urgent Care Center or Emergency Room Smoking is Dangerous to Your Health. Avoid second hand smoke Call the 24-hour crisis hotline for domestic abuse at Chris Vickers MD R2 Oct 04, 2017 08:23
[2017-10-04] MEDS ORDERED: PERI PO (08:42)
[2017-10-04] MEDS ORDERED: IBUP-232 PO (08:42)
[2017-10-04] MEDS ORDERED: OXYC1TAB63 PO (08:42)
--- NOTE | 2017-10-04 08:46 | HHI.OB ---
Subjective Post Operative Day: 3 Remarks Postoperative day number 3. AFVSS overnight. Pain controlled with medications. Incision not draining. Decreased lochia. Denies dysuria. No breast tenderness. Appetite good. No nausea or vomiting. Endorses flatus. Endorses bowel movement. Ambulating well. Denies calf pain, shortness of breath, or cough. Otherwise, she is doing well this morning and has no other complaints. Objective Vitals/I&O Vital Signs Date Time Temp Pulse Resp B/P (MAP) Pulse Ox O2 Delivery O2 Flow Rate FiO2 10/04/17 08:15 99.0 89 20 121/77 (92) 98 Result Diagram: 10/02/17 0520 10/01/17 0940 Objective Remarks GENERAL: Well-nourished, well-developed patient. CARDIOVASCULAR: Regular rate and rhythm without murmurs, gallops, or rubs. RESPIRATORY: Breath sounds equal bilaterally. No accessory muscle use. ABDOMEN/GI: Abdomen soft, non-tender, bowel sounds present. Incision: Clean, dry and intact. Fundus: Firm, non-tender at umbilicus. GENITOURINARY: Light to moderate bleeding. EXTREMITIES: No cyanosis or edema, non-tender, without signs of DVT. Medications and IVs Current Medications Medications (Trade) Dose Ordered Sig/Eliud Route Start Time Stop Time Status Last Admin (NS Flush) 2 ml BID IV FLUSH 10/01/17 21:00 (NS Flush) 2 ml UNSCH PRN IV FLUSH 10/01/17 16:00 (Mylicon Chew) 80 mg QID PRN PO 10/01/17 16:00 10/03/17 11:09 (Tylenol) 650 mg Q6H PRN PO 10/01/17 16:00 (Motrin) 600 mg Q6H PRN PO 10/01/17 16:00 10/04/17 00:37 (Percocet 5-325 Mg) 1 tab Q4H PRN PO 10/01/17 16:00 (Percocet 5-325 Mg) 2 tab Q4H PRN PO 10/01/17 16:00 10/04/17 00:38 (Divina-Colace) 2 tab Q12H PRN PO 10/01/17 16:00 10/04/17 00:37 (Ambien) 5 mg HS PRN PO 10/01/17 16:00 (Zofran Odt) 4 mg Q6H PRN PO 10/01/17 16:00 Assessment/Plan Assessment and Plan Patient is a 22-year-old delivered at 38 weeks and 5 days. Patient is day 3 after emergent . Patient was counseled to do 6 weeks of pelvic rest. Patient was counseled to follow up in 1 and 6 weeks. Patient requested follow-up and contraception. --AF VSS --Continue routine care --Motrin and Percocet when necessary for pain --Encourage OOB --Pelvic rest for 6 weeks will need follow-up appointment at that time. Will also need follow-up in 1 week for incision check --Contraception: Undecided --Anticipate discharge today Chris Vickers MD R2 Oct 04, 2017 08:46
[2017-10-04 10:49] VITALS: BP 144/88; PULSE 76; RESP 18; TEMP 98.1
== END 2017-10-04 12:16 | disposition home or self-care (01) | DRG 766 ==
LOC: HOBED 09:07 → H2EA 09:26 → H1EA 17:43
PROVIDERS: ADMIT Obstetrics & Gynecology; ATTEND Obstetrics & Gynecology
PROC: 10D00Z1 Extraction of Products of Conception, Low, Open Approach (ICD-10-PCS; principal; 2017-10-01)
PROC: 3E0R3BZ Introduction of Anesthetic Agent into Spinal Canal, Percutaneous Approach (ICD-10-PCS; 2017-10-01)
PROC: 00HU33Z Insertion of Infusion Device into Spinal Canal, Percutaneous Approach (ICD-10-PCS; 2017-10-01)
DX: O34.219 Maternal care for unspecified type scar from previous cesarean delivery (principal); O76 Abnormality in fetal heart rate and rhythm complicating labor and delivery; O09.33 Supervision of pregnancy with insufficient antenatal care, third trimester; Z37.0 Single live birth; Z3A.38 38 weeks gestation of pregnancy
CPT/HCPCS: 59025; 80053; 80074; 80307; 81001; 82805; 85025; 85461; 86592; 86762; 86850; 86900; 86901; 87389; 88307; 90384; G0475; G0481; J0131; J0690; J1200; J1885; J2274; J2370; J2405; J2590; J2790; J7120